=== PATIENT | male | born 1945 | race Caucasian/White ===

== ENCOUNTER 2018-05-06 07:54 | Emergency (ER) | payer MEDICARE ==
[2018-05-06 08:50] LABS: #Basophils 0.1 thou/uL (0.0-0.2); #Eosinphils 0.2 thou/uL (0.0-0.7); #Lymphocytes 0.9 thou/uL (1.20-3.40); #Monocytes 0.4 thou/uL (0.11-0.59); #Neutrophils 2.9 thou/uL (1.40-6.50); %Basophils 1.1 % (0.0-1.0); %Eosinophils 4.4 % (0.0-10.0); %Lymphocytes 20.1 % (21.0-51.0); %Monocytes 8.8 % (0.0-10.0); %Neutrophils 65.5 % (42.0-75.0); Hemoglobin 14.3 g/dL (14.0-18.0); Mean Corpuscular HGB CONC 33.6 g/dL (32.0-36.0); Mean Corpuscular Hemoglobin 30.8 pg (27.0-31.0); Mean Corpuscular Volume 91.7 fL (78.0-98.0); Mean Platelet Volume 8.2 fL (7.4-10.4); Platelet Count 186 thou/uL (130-400); RBC Distribution Width 11.8 % (11.5-14.5); Red Blood Cell (RBC) Count 4.63 mill/uL (4.70-6.10); White Blood Cell (WBC) Count 4.5 thou/uL (4.8-10.8)
[2018-05-06 09:04] LABS: ALT (SGPT) 27 U/L (8-55); AST (SGOT) 21 U/L (5-34); Albumin 4.3 g/dL (3.4-4.8); Alkaline Phosphatase 81 U/L (40-150); Anion Gap 11 mmol/L (10-20); BUN (Urea Nitrogen) 9 mg/dL (8.4-25.7); Bilirubin, Total 0.8 mg/dL (0.2-1.2); Calc. Creatinine Clearance 0 mL/min (70-130); Calcium 9.5 mg/dL (7.8-10.44); Carbon Dioxide 27 mmol/L (23-31); Chloride 107 mmol/L (98-107); Estimated GFR-MDRD Greater than 90; Globulin 2.7 g/dL (2.4-3.5); Glucose 132 mg/dL (83-110); Potassium 3.5 mmol/L (3.5-5.1); Sodium 141 mmol/L (136-145)
== END 2018-05-06 10:08 | disposition home or self-care (01) ==
LOC: ERS 07:54
DX: I10 Essential (primary) hypertension (principal); K21.9 Gastro-esophageal reflux disease without esophagitis; E78.5 Hyperlipidemia, unspecified; Z79.899 Other long term (current) drug therapy
CPT/HCPCS: 36415; 80053; 84484; 85025; 93005

== ENCOUNTER 2023-12-25 12:19 | Outpatient (CLI) | payer MEDICARE ==
[2023-12-25 13:19] LABS: #Basophils 0.05 10x3/uL (0.0-0.2); %Eosinophils 2.9 % (0.0-10.0); %Lymphocytes 23.8 % (21.0-51.0); %Monocytes 10.2 % (0.0-10.0); %Neutrophils 61.9 % (42.0-75.0); Hemoglobin 13.9 g/dL (14.0-18.0); Mean Corpuscular HGB CONC 34.8 g/dL (32.0-36.0); Mean Corpuscular Hemoglobin 31.3 pg (27.0-31.0); Mean Corpuscular Volume 90.1 fL (78.0-98.0); Mean Platelet Volume 10.4 fL (7.4-10.4); Platelet Count 167 10x3/uL (130-400); RBC Distribution Width 13.1 % (11.5-14.5); Red Blood Cell (RBC) Count 4.44 mill/uL (4.70-6.10)
[2023-12-25 13:36] LABS: Anion Gap 13 mmol/L (10-20); BUN (Urea Nitrogen) 11 mg/dL (8.4-25.7); Calc. Creatinine Clearance 0 mL/min (70-130); Calcium 8.9 mg/dL (7.8-10.44); Carbon Dioxide 24 mmol/L (23-31); Chloride 106 mmol/L (98-107); Estimated GFR 91; Glucose 104 mg/dL (83-110); Potassium 3.6 mmol/L (3.5-5.1); Sodium 139 mmol/L (136-145)
== END 2023-12-25 12:20 | disposition home or self-care (01) ==
LOC: LABBT 12:19
PROVIDERS: ATTEND Thoracic Surgery (Cardiothoracic Vascular Surgery)
DX: Z01.812 Encounter for preprocedural laboratory examination (principal); I65.21 Occlusion and stenosis of right carotid artery
CPT/HCPCS: 80048; 85025

== ENCOUNTER 2023-12-25 12:30 | Inpatient (IN) | payer MEDICARE ==
[2023-12-26] MEDS ORDERED: Lidocaine 1% MPF 2 ML VIAL ONE (09:43)
[2023-12-26] MEDS ORDERED: Ondansetron PF 4 MG/2 ML Vial ONE (09:52)
[2023-12-26] MEDS ORDERED: Rocuronium Bromide 10 MG/ML (10ML VIAL) ONE (09:52)
[2023-12-26] MEDS ORDERED: fentaNYL PF 100 MCG/2 ML SYRINGE ONE (09:52)
[2023-12-26] MEDS ORDERED: PROPOFOL 20 ML ONE (09:52)
[2023-12-26] MEDS ORDERED: Dexamethasone 4 mg/ml Vial ONE (09:52)
[2023-12-26] MEDS ORDERED: Lidocaine 1% PF 5 ML VIAL ONE (09:52)
[2023-12-26] MEDS ORDERED: SUGAMMADEX SODIUM 200 MG/2 ML VIAL ONE (09:53)
[2023-12-26] MEDS ORDERED: Phenylephrine 40 MG/NS 250 ML 250 ML ONE (09:53)
[2023-12-26] MEDS ORDERED: Labetalol HCl 100 MG/20 ML VIAL ONE (09:55)
[2023-12-26] MEDS ORDERED: Heparin 10,000 UNITS/ 10 ML VIAL ONE (09:55)
[2023-12-26] MEDS ORDERED: EPINEPHrine 1 MG/ML VIAL ONE (09:57)
[2023-12-26] MEDS ORDERED: Heparin 5,000 UNITS/ML VIAL ONE (09:57)
[2023-12-26] MEDS ORDERED: Bupivacaine PF 0.5% 30 ML VIAL ONE (09:57)
[2023-12-26] MEDS ORDERED: CEFAZOLIN 2 GM VIAL ONE (10:06)
[2023-12-26] MEDS ORDERED: PHENYLEPHRINE-NS 100 MCG/ML 10 ML SYRINGE ONE (10:31)
[2023-12-26] MEDS ORDERED: ePHEDrine Sulfate 50 MG/10 ML VIAL ONE (10:37)
[2023-12-26] MEDS ORDERED: Glycopyrrolate 0.2 MG/ML 5 ML SYRINGE ONE (10:37)
[2023-12-26] MEDS ORDERED: Protamine Sulfate 50 MG/5 ML VIAL ONE (11:27)
[2023-12-26] MEDS ORDERED: Ipratropium/Albuterol 3 ML NEB NEB PRN (11:41)
[2023-12-26] MEDS ORDERED: Ondansetron PF 4 MG/2 ML Vial IVP PRN (11:41)
[2023-12-26] MEDS ORDERED: hydrALAZINE 20 MG/ML VIAL SLOW IVP PRN (11:41)
[2023-12-26] MEDS ORDERED: traMADol HCl 50 MG TAB PO PRN (11:41)
[2023-12-26] MEDS ORDERED: Promethazine HCl 25 MG/ML VIAL IM PRN (11:41)
[2023-12-26] MEDS ORDERED: fentaNYL 50 mcg/mL 1 mL Vial SLOW IVP PRN (11:41)
[2023-12-26] MEDS ORDERED: Acetaminophen 325 MG TAB PO PRN (11:41)
[2023-12-26] MEDS ORDERED: Nitroglycerin 50 MG/250 ML BOT 250 ML IVPB PRN (11:41)
[2023-12-26] MEDS ORDERED: Phenylephrine 40 MG in Sodium Chloride 0.9% 250 ML 250 ML IVPB PRN (11:41)
[2023-12-26 13:14] VITALS: BMI 29.0
[2023-12-26] MEDS: Sodium Chloride 0.9% 1,000 ML IV SCH (13:28)
[2023-12-26] MEDS: Ipratropium/Albuterol 3 ML NEB NEB SCH (14:42)
[2023-12-26] MEDS: CEFAZOLIN 2 GM in Sodium Chloride 0.9% 100 ML IVPB SCH (18:13)
[2023-12-26] MEDS: FLU (Fluad Triv) TS24-25 (65UP)/MF59C/PF 45 MCG/0.5 ML Syringe IM ONE (18:26)
[2023-12-26] MEDS: Fluticasone Propionate Nasal Spray 16 gm Bottle NASAL SCH (20:08)
[2023-12-26] MEDS: Atorvastatin Calcium 40 MG TAB PO SCH (20:08)
[2023-12-26] MEDS: NIFEdipine XL 30 MG ER.TAB PO SCH (20:08)
[2023-12-26 20:09] VITALS: BP 98/52
[2023-12-27] MEDS: Pantoprazole DR 40 MG TAB PO SCH (07:43)
[2023-12-27] MEDS: Aspirin 81 mg Enteric Coated Tablet PO SCH (07:43)
[2023-12-27] MEDS: Loratadine 10 MG TAB PO SCH (07:43)
[2023-12-27 08:59] VITALS: TEMP 97.8
[2023-12-27] MEDS ORDERED: Propranolol 40 MG TAB PO PRN (10:27)
== END 2023-12-27 09:05 | disposition home or self-care (01) | DRG 39 ==
LOC: SURG A 12-26 08:13 → CCU 12-26 13:11
PROVIDERS: ADMIT Thoracic Surgery (Cardiothoracic Vascular Surgery); ATTEND Thoracic Surgery (Cardiothoracic Vascular Surgery)
PROC: 03CH0ZZ Extirpation of Matter from Right Common Carotid Artery, Open Approach (ICD-10-PCS; principal; 2023-12-26)
PROC: 03CK0ZZ Extirpation of Matter from Right Internal Carotid Artery, Open Approach (ICD-10-PCS; 2023-12-26)
PROC: 03UH0KZ Supplement Right Common Carotid Artery with Nonautologous Tissue Substitute, Open Approach (ICD-10-PCS; 2023-12-26)
DX: I65.21 Occlusion and stenosis of right carotid artery (principal); I10 Essential (primary) hypertension; M19.90 Unspecified osteoarthritis, unspecified site; E78.5 Hyperlipidemia, unspecified; Z79.899 Other long term (current) drug therapy; Z98.890 Other specified postprocedural states; Z88.8 Allergy status to other drugs, medicaments and biological substances
CPT/HCPCS: 90653; 94640; C1768; J0171; J0665; J1100; J1642; J1644; J2405; J2704; J2720; J7030; J7620

== ENCOUNTER 2024-02-22 07:32 | Inpatient (IN) | payer MEDICARE ==
[2024-02-22] MEDS ORDERED: DOPamine 400 MG/D5W 250 ML 250 ML ONE (08:51)
[2024-02-22] MEDS ORDERED: PROPOFOL 200 MG/20 ML VIAL ONE (09:01)
[2024-02-22] MEDS ORDERED: Glycopyrrolate 0.2 MG/ML 5 ML SYRINGE ONE (09:01)
[2024-02-22] MEDS ORDERED: Rocuronium Bromide 10 MG/ML (10ML VIAL) ONE (09:01)
[2024-02-22] MEDS ORDERED: Dexamethasone 20 MG/5 ML VIAL ONE (09:01)
[2024-02-22] MEDS ORDERED: NEOSTIGMINE 3 MG/3 ML SYRINGE ONE (09:01)
[2024-02-22] MEDS ORDERED: SUCCINYLCHOLINE/SOD CL,ISO/PF 200 MG/10 ML SYRINGE FS ONE (09:01)
[2024-02-22] MEDS ORDERED: Lidocaine 1% MPF 2 ML VIAL ONE (09:13)
[2024-02-22] MEDS ORDERED: fentaNYL 50 mcg/mL 1 mL Vial SLOW IVP PRN (09:47)
[2024-02-22] MEDS ORDERED: traMADol HCl 50 MG TAB PO PRN (09:47)
[2024-02-22] MEDS ORDERED: hydrALAZINE 20 MG/ML VIAL SLOW IVP PRN (09:47)
[2024-02-22] MEDS ORDERED: Ondansetron PF 4 MG/2 ML Vial IVP PRN (09:47)
[2024-02-22] MEDS ORDERED: Ipratropium/Albuterol 3 ML NEB NEB PRN (09:47)
[2024-02-22] MEDS ORDERED: Nitroglycerin 50 MG/250 ML BOT 250 ML IVPB PRN (09:47)
[2024-02-22] MEDS ORDERED: NOREPINEPHRINE 8 MG/250 ML-D5W 250 ML IVPB PRN (09:47)
[2024-02-22] MEDS ORDERED: fentaNYL 50 mcg/mL 1 mL Vial ONE (10:06)
[2024-02-22 12:50] VITALS: BMI 29.0
[2024-02-22] MEDS: Ipratropium/Albuterol 3 ML NEB NEB SCH (14:30)
[2024-02-22] MEDS: Sodium Chloride 0.9% 1,000 ML IV SCH (15:43)
[2024-02-22] MEDS: CEFAZOLIN 2 GM in Sodium Chloride 0.9% 100 ML IVPB SCH (18:14)
[2024-02-22] MEDS: DOPamine 400 MG/D5W 250 ML 250 ML IVPB PRN (18:25)
[2024-02-22] MEDS: Fluticasone Propionate Nasal Spray 16 gm Bottle NASAL SCH (21:06)
[2024-02-22] MEDS: Atorvastatin Calcium 40 MG TAB PO SCH (21:07)
[2024-02-22] MEDS: Acetaminophen 325 MG TAB PO PRN (21:12)
[2024-02-23] MEDS: Aspirin 81 mg Enteric Coated Tablet PO SCH (08:35)
[2024-02-23] MEDS: Pantoprazole DR 40 MG TAB PO SCH (08:35)
[2024-02-23] MEDS: Loratadine 10 MG TAB PO SCH (08:36)
[2024-02-23 10:50] VITALS: TEMP 98.4
== END 2024-02-23 10:28 | disposition home or self-care (01) | DRG 39 ==
LOC: SURG A 07:32 → EDSTATUS 09:58 → CCU 12:28
PROVIDERS: ADMIT Thoracic Surgery (Cardiothoracic Vascular Surgery); ATTEND Thoracic Surgery (Cardiothoracic Vascular Surgery)
PROC: 03CJ0ZZ Extirpation of Matter from Left Common Carotid Artery, Open Approach (ICD-10-PCS; principal; 2024-02-22)
PROC: 03CN0ZZ Extirpation of Matter from Left External Carotid Artery, Open Approach (ICD-10-PCS; 2024-02-22)
PROC: 03CL0ZZ Extirpation of Matter from Left Internal Carotid Artery, Open Approach (ICD-10-PCS; 2024-02-22)
DX: I65.22 Occlusion and stenosis of left carotid artery (principal); Z88.8 Allergy status to other drugs, medicaments and biological substances; Z79.899 Other long term (current) drug therapy
CPT/HCPCS: 94640; C1768; J1265; J1642; J3010; J7620

== ENCOUNTER 2024-03-01 16:52 | Inpatient (IN) | payer MEDICARE ==
[2024-03-01] MEDS ORDERED: cloNIDine 0.1 MG TAB ONE (18:54)
[2024-03-01 19:05] LABS: #Basophils 0.04 10x3/uL (0.0-0.2); %Basophils 0.5 % (0.0-1.0); %Eosinophils 1.4 % (0.0-10.0); %Lymphocytes 12.4 % (21.0-51.0); %Monocytes 7.4 % (0.0-10.0); %Neutrophils 77.9 % (42.0-75.0); Hematocrit 38.9 % (42.0-52.0); Hemoglobin 13.4 g/dL (14.0-18.0); Mean Corpuscular HGB CONC 34.4 g/dL (32.0-36.0); Mean Corpuscular Hemoglobin 31.2 pg (27.0-31.0); Mean Corpuscular Volume 90.5 fL (78.0-98.0); Mean Platelet Volume 10.2 fL (7.4-10.4); Platelet Count 215 10x3/uL (130-400)
[2024-03-01 19:21] LABS: ALT (SGPT) 16 U/L (8-55); AST (SGOT) 19 U/L (5-34); Albumin 3.6 g/dL (3.4-4.8); Alkaline Phosphatase 84 U/L (40-110); Anion Gap 12 mmol/L (10-20); BUN (Urea Nitrogen) 10 mg/dL (8.4-25.7); Bilirubin, Total 0.4 mg/dL (0.2-1.2); Calc. Creatinine Clearance 0 mL/min (70-130); Calcium 8.8 mg/dL (7.8-10.44); Carbon Dioxide 22 mmol/L (23-31); Chloride 108 mmol/L (98-107); Estimated GFR 93; Globulin 3.3 g/dL (2.4-3.5); Glucose 112 mg/dL (83-110); Potassium 4.1 mmol/L (3.5-5.1); Protein, Total 6.9 g/dL (5.8-8.1); Sodium 138 mmol/L (136-145)
[2024-03-01 19:24] LABS: Troponin I Less than 0.010 ng/mL (< 0.028)
[2024-03-01] MEDS ORDERED: niCARdipine 25 MG/10 ML SDV ONE (19:49)
[2024-03-01] MEDS ORDERED: Ondansetron PF 4 MG/2 ML Vial IVP PRN (20:37)
[2024-03-01] MEDS ORDERED: Acetaminophen 650 MG Suppository PR PRN ×2 (20:37→20:38)
[2024-03-01] MEDS ORDERED: Acetaminophen 325 MG (10.15 ML) UDCUP PO PRN (20:37)
[2024-03-01] MEDS ORDERED: Electrolyte Replacement Protocol IVPB SCH (20:37)
[2024-03-01] MEDS ORDERED: Calcium Carbonate 500 MG ChewTAB PO PRN (20:38)
[2024-03-01] MEDS ORDERED: niCARdipine 25 MG in Sodium Chloride 0.9% 250 ML 250 ML IVPB SCH (20:45)
[2024-03-01] MEDS ORDERED: hydrALAZINE 20 MG/ML VIAL SLOW IVP PRN (21:17)
[2024-03-01 21:41] VITALS: BMI 29.0
[2024-03-01] MEDS: Atorvastatin Calcium 40 MG TAB PO SCH (22:19)
[2024-03-01] MEDS: Famotidine 20 MG TAB PO SCH (22:19)
[2024-03-01] MEDS: NIFEdipine XL 30 MG ER.TAB PO SCH (22:20)
[2024-03-01] MEDS: Famotidine/PF 20 mg/2ml Vial SLOW IVP SCH (22:20)
[2024-03-01] MEDS: Atropine Sulfate 1 mg/10 ml Syringe IVP SCH (23:24)
[2024-03-01] MEDS: Sodium Chloride 0.9% 500 ML IV SCH (23:25)
[2024-03-02 06:11] LABS: Magnesium 1.9 mg/dL (1.6-2.6)
[2024-03-02] MEDS: Acetaminophen 325 MG TAB PO PRN (06:34)
[2024-03-02] MEDS: Magnesium 2 GM/50 ML(in water) 2 GM in Premix 1 BAG IVPB SCH (06:35)
[2024-03-02 08:11] VITALS: TEMP 98.1
[2024-03-02] MEDS: Loratadine 10 MG TAB PO SCH (09:02)
[2024-03-02] MEDS: Aspirin 81 mg Enteric Coated Tablet PO SCH (09:02)
[2024-03-02] MEDS ORDERED: Ondansetron ODT 4 MG TAB PO PRN (13:23)
[2024-03-02] MEDS ORDERED: Electrolyte Replacement Protocol FS PRN (13:30)
[2024-03-02] MEDS ORDERED: Fluticasone Propionate Nasal Spray 16 gm Bottle NASAL SCH (21:00)
== END 2024-03-02 17:04 | disposition home or self-care (01) | DRG 305 ==
LOC: ERS 16:52 → CCU 20:07
PROVIDERS: ADMIT Student in an Organized Health Care Education/Training Program; ATTEND Internal Medicine
DX: I16.1 Hypertensive emergency (principal); R00.1 Bradycardia, unspecified; Z88.8 Allergy status to other drugs, medicaments and biological substances; I10 Essential (primary) hypertension; Z98.890 Other specified postprocedural states; Z83.3 Family history of diabetes mellitus; K21.9 Gastro-esophageal reflux disease without esophagitis; M19.90 Unspecified osteoarthritis, unspecified site; Z79.82 Long term (current) use of aspirin; Z79.899 Other long term (current) drug therapy; F41.9 Anxiety disorder, unspecified; E78.5 Hyperlipidemia, unspecified
CPT/HCPCS: 36415; 36416; 71045; 80053; 83735; 84443; 84484; 85025; 93005; 96374; J0461; J3475; J7030